=== PATIENT | female | born 1975 | race Caucasian/White ===

== ENCOUNTER 2017-04-10 07:08 | Emergency (ER) | payer OTHER ==
[~2017-04-10] VITALS: Ht 165.1 cm; Wt 81.6 kg
[2017-04-10 08:09] LABS: PLATELET COUNT 240 x10^3mcL (130-400); RED CELL DISTRIBUTION WIDTH 12.9 % (11.5-14.5)
[2017-04-10 08:11] LABS: BASOPHIL % 0 % (0-2); CALCIUM 8.6 mg/dL (8.5-10.1); CARBON DIOXIDE 26.3 mmol/L (21-32); CHLORIDE SERUM 103 mmol/L (98-107); CREATININE SERUM 0.6 mg/dL (0.6-1.0); GFR1 > 60 mL/min; GLUCOSE SERUM 124 mg/dL (74-106); POTASSIUM SERUM 3.6 mmol/L (3.5-5.1); SODIUM SERUM 139 mmol/L (136-145)
[2017-04-10 08:16] LABS: ALBUMIN 3.8 g/dL (3.4-5.0); ALKALINE PHOSPHATASE 77 U/L (46-116); ALT/SGPT 35 U/L (14-59); AMYLASE 32 U/L (25-115); AST/SGOT 25 U/L (15-37); BILIRUBIN TOTAL 0.6 mg/dL (0.20-1.00); LIPASE 86 IU/L (73-393); TOTAL PROTEIN, SERUM 7.6 g/dL (6.4-8.2)
[2017-04-10 10:45] VITALS: BP 95/56
== END 2017-04-10 10:45 | disposition home or self-care (01) ==
LOC: ED 07:08
PROVIDERS: Specialist
DX: R19.7 Diarrhea, unspecified (principal); R10.84 Generalized abdominal pain; Z85.42 Personal history of malignant neoplasm of other parts of uterus; Z90.89 Acquired absence of other organs
CPT/HCPCS: J1885; J2405; J3010; J7030; Q9967

== ENCOUNTER 2018-02-28 14:57 | Emergency (ER) | payer OTHER ==
[~2018-02-28] VITALS: Ht 157.5 cm; Wt 84.4 kg
[2018-02-28 15:03] VITALS: Ht 157.5 cm; Wt 84.4 kg
[2018-02-28 17:21] VITALS: BP 108/59
== END 2018-02-28 17:21 | disposition home or self-care (01) ==
LOC: ED 14:57
DX: S16.1XXA Strain of muscle, fascia and tendon at neck level, initial encounter (principal); R68.84 Jaw pain; R51 Headache; V49.9XXA Car occupant (driver) (passenger) injured in unspecified traffic accident, initial encounter; Y93.73 Activity, racquet and hand sports; Y92.89 Other specified places as the place of occurrence of the external cause; Y99.8 Other external cause status; Z90.710 Acquired absence of both cervix and uterus
CPT/HCPCS: J1885

== ENCOUNTER 2018-06-12 16:12 | Emergency (ER) | payer OTHER ==
[~2018-06-12] VITALS: Ht 160 cm; Wt 84.8 kg
[2018-06-12 16:49] VITALS: Ht 160 cm; Wt 84.8 kg
[2018-06-12 17:36] VITALS: BP 117/70
== END 2018-06-12 17:36 | disposition home or self-care (01) ==
LOC: ED 16:12
DX: F43.9 Reaction to severe stress, unspecified (principal); G44.209 Tension-type headache, unspecified, not intractable; Z90.710 Acquired absence of both cervix and uterus

== ENCOUNTER 2019-01-20 13:54 | Emergency (ER) | payer OTHER ==
[~2019-01-20] VITALS: Ht 165.1 cm; Wt 84.4 kg
[2019-01-20 14:11] VITALS: BP 126/55; Ht 165.1 cm; Wt 84.4 kg
== END 2019-01-20 15:37 | disposition home or self-care (01) ==
LOC: ED 13:54
DX: S39.012A Strain of muscle, fascia and tendon of lower back, initial encounter (principal); S09.8XXA Other specified injuries of head, initial encounter; Z90.710 Acquired absence of both cervix and uterus; V48.5XXA Car driver injured in noncollision transport accident in traffic accident, initial encounter; Y93.I9 Activity, other involving external motion; Y92.411 Interstate highway as the place of occurrence of the external cause; Y99.8 Other external cause status
CPT/HCPCS: 82962